=== PATIENT | male | born 1985 | race Caucasian/White ===

== ENCOUNTER → 2022-09-24 | Outpatient (CLI) | payer OTHER | LOC: M SLEEP 20:00 | PROVIDERS: ATTEND Registered Nurse | DX: G47.33 Obstructive sleep apnea (adult) (pediatric) (principal) ==

== ENCOUNTER → 2023-10-05 | Outpatient (REF) | LOC: M PLAIMG 11:47 | PROVIDERS: ATTEND Nurse Practitioner Family | DX: J32.9 Chronic sinusitis, unspecified (principal) ==

== ENCOUNTER → 2023-10-09 | Outpatient (REF) | LOC: M PLAIMG 09:38 | PROVIDERS: ATTEND Nurse Practitioner Family | DX: J96.90 Respiratory failure, unspecified, unspecified whether with hypoxia or hypercapnia (principal); J32.9 Chronic sinusitis, unspecified ==

== ENCOUNTER → 2024-03-24 | Outpatient (REF) | LOC: M PLAIMG 13:25 | PROVIDERS: ATTEND Internal Medicine | DX: R06.02 Shortness of breath (principal) ==